=== PATIENT | male | born 1980 | race Caucasian/White ===

== ENCOUNTER 2020-03-03 13:46 | Emergency (ER) | payer SELFPAY ==
[2020-03-03 13:54] VITALS: BP 128/68
--- NOTE | 2020-03-03 14:16 | ED Physician Documentation ---
History of Present Illness - Stated complaint Stated Complaint: R SIDE FACE SWELLING - Chief complaint Chief Complaint: Heent - History obtained from History obtained from: Patient (Pt presents w/ right lower jaw swelling since yesterday. No fever, facial redness, sore throat or URI sx.) Review of Systems Constitutional: reports: Reviewed and negative Eyes: reports: Reviewed and negative Ears: reports: Reviewed and negative Throat: reports: Dental pain / toothache. denies: Oral lesions / sores, Sore throat, Swollen tonsils, Swallowed foreign body Cardiac: reports: Reviewed and negative Respiratory: reports: Reviewed and negative GI: reports: Reviewed and negative PD PAST MEDICAL HISTORY - Past Medical History Cardiovascular: None Respiratory: None Neuro: Peripheral neuropathy Endocrine/Autoimmune: None GI: None : None HEENT: None Psych: None Musculoskeletal: Chronic back pain Derm: None - Past Surgical History Past Surgical History: Yes General: Appendectomy - Present Medications Home Medications: Ambulatory Orders Medication Instructions Recorded Confirmed Amox/Clav 875/125 [Augmentin] 1 each PO Q12H #20 tablet 03/03/20 Gabapentin 800 mg PO TID 03/03/20 03/03/20 Melatonin 10 mg PO DAILY PM 03/03/20 03/03/20 diphenhydrAMINE [Benadryl] 75 mg PO HS 03/03/20 03/03/20 hydrOXYzine pamoate [Hydroxyzine 25 mg PO DAILY PM PRN 03/03/20 03/03/20 Pamoate] - Allergies Allergies/Adverse Reactions: Allergies Allergy/AdvReac Type Severity Reaction Status Date / Time No Known Drug Allergies Allergy Verified 03/03/20 13:54 - Social History Does the pt smoke?: Yes Smoking Status: Current every day smoker Does the pt drink ETOH?: No Does the pt have substance abuse?: No - Immunizations Immunizations are current?: No Immunizations: TDAP >10years/unknown - POLST Patient has POLST: No PD ED PE NORMAL - Vitals Vital signs reviewed: Yes - General General: Alert and oriented X 3, No acute distress, Well developed/nourished - HEENT HEENT: Atraumatic, Moist mucous membranes, Other (very poor dentition overall with multiple broken teeth and caries, specifically at the site of discomfort and swelling, but in the remainder of the teeth as well. No facial redness, no abscess along the gum line, no oral lesions. ) - Neck Neck: Supple, no meningeal sign, No adenopathy - Cardiac Cardiac: RRR, No murmur - Respiratory Respiratory: No respiratory distress, Clear bilaterally Results - Vitals Vitals: Vital Signs - 24 hr 03/03/20 13:48 Temperature 36.5 C Heart Rate 90 Respiratory 14 Rate Blood Pressure 128/68 O2 Saturation 98 Oxygen O2 Source Room air PD MEDICAL DECISION MAKING - ED course Complexity details: considered differential, d/w patient ED course: Pt has a dental abscess. He has very poor dentition and needs to follow up with dental within the next 1-2 weeks. I will start him on Augmentin for dental abscess and advised good oral care. Prn motrin or tylenol for pain. Return precautions discussed. Departure - Departure Disposition: 01 Home, Self Care Clinical Impression: Pain due to dental caries Instructions: ED Tooth Pain Prescriptions: Amox/Clav 875/125 [Augmentin] 1 each PO Q12H #20 tablet Comments: You have a tooth abscess. Please take antibiotics as prescribed. You can take ibuprofen or tylenol for pain. You will need to follow up with a dentist as soon as you are able. Return to the ER if you develop facial redness/warmth and fever, or your symptoms are otherwise worsening.
== END 2020-03-03 14:33 | disposition home or self-care (01) ==
LOC: ED 13:46
DX: K04.7 Periapical abscess without sinus (principal); K02.9 Dental caries, unspecified; F17.200 Nicotine dependence, unspecified, uncomplicated
CPT/HCPCS: 99282; 99283